=== PATIENT | male | born 1975 ===

== ENCOUNTER 2016-12-07 15:00 | Emergency (ER) | payer OTHER ==
[2016-12-07 15:10] VITALS: BMI 34.1
[2016-12-07] MEDS ORDERED: Insulin Reg-MEDIUM-Coverage IV STA (15:25)
[2016-12-07] MEDS ORDERED: Sodium Chloride 0.9% 1,000 ML IV STA (15:25)
--- NOTE | 2016-12-07 15:43 | ED PDOC ---
Arrival/HPI - General Chief Complaint: Male Genitourinary Time Seen by Provider: 12/07/16 15:11 Historian: Patient - History of Present Illness Narrative History of Present Illness (Text): 12/07/16 15:39 41yo morbidly obese male with no PMHx who present with 4days history of urinary frequency and poly dipsia. Notes that he is constantly thirsty and urinating frequently. The friend who was by the bedside states, his finger stick was greater than 400 at home, earlier today. He denies abdominal pain, dysuria, fever, chills, aback pain, any other complaint. Past Medical History - Provider Review Nursing Documentation Reviewed: Yes - Cardiac Hx Cardiac Disorders: No - Pulmonary Hx Asthma: Yes - Neurological Hx Neurological Disorder: No - HEENT Hx HEENT Disorder: No - Renal Hx Renal Disorder: No - Endocrine/Metabolic Hx Endocrine Disorders: No - Hematological/Oncological Hx Blood Disorders: No - Integumentary Hx Dermatological Disorder: No - Musculoskeletal/Rheumatological Hx Musculoskeletal Disorders: No - Gastrointestinal Hx Gastrointestinal Disorders: No - Genitourinary/Gynecological Hx Genitourinary Disorders: No - Psychiatric Hx Psychophysiologic Disorder: No Hx Substance Use: No - Anesthesia Hx Anesthesia: No Family/Social History - Physician Review Nursing Documentation Reviewed: Yes Family/Social History: Unknown Family HX Smoking Status: Never Smoked Hx Alcohol Use: No Hx Substance Use: No Allergies/Home Meds Allergies/Adverse Reactions: Allergies shellfish derived Allergy (Verified 12/07/16 15:10) ANAPHYLAXIS Review of Systems - Physician Review All systems were reviewed & negative as marked: Yes - Review of Systems Constitutional: Normal Eyes: Normal ENT: Normal Respiratory: Normal Cardiovascular: Normal Gastrointestinal: Normal Genitourinary Male: Normal Musculoskeletal: Normal Skin: Normal Neurological: Normal Endocrine: Polyuria, Polydipsia Hemo/Lymphatic: Normal Psychiatric: Normal Physical Exam Vital Signs Reviewed: Yes Vital Signs Temp Pulse Resp BP Pulse Ox 12/07/16 16:55 98.5 F 107 H 16 131/65 98 12/07/16 15:10 99.2 F 110 H 17 148/92 H 94 L 12/07/16 15:09 99.2 F 110 H 17 148/92 H 94 L Temperature: Afebrile Blood Pressure: Normal Pulse: Tachycardic Respiratory Rate: Normal Appearance: Positive for: Well-Appearing, Non-Toxic, Comfortable Pain Distress: None Mental Status: Positive for: Alert and Oriented X 3 Finger Stick Blood Glucose: 333 - Systems Exam Head: Present: Atraumatic, Normocephalic Pupils: Present: PERRL Extroacular Muscles: Present: EOMI Conjunctiva: Present: Normal Mouth: Present: Moist Mucous Membranes Neck: Present: Normal Range of Motion Respiratory/Chest: Present: Clear to Auscultation, Good Air Exchange. No: Respiratory Distress, Accessory Muscle Use Cardiovascular: Present: Regular Rate and Rhythm, Normal S1, S2. No: Murmurs Abdomen: Present: Normal Bowel Sounds. No: Tenderness, Distention, Peritoneal Signs Back: Present: Normal Inspection Upper Extremity: Present: Normal Inspection. No: Cyanosis, Edema Lower Extremity: Present: Normal Inspection. No: Edema Neurological: Present: GCS=15, CN II-XII Intact, Speech Normal Skin: Present: Warm, Dry, Normal Color. No: Rashes Psychiatric: Present: Alert, Oriented x 3, Normal Insight, Normal Concentration Medical Decision Making ED Course and Treatment: 12/07/16 15:43 41yo male in ED for polyuiria and polydipsia. The girlfriend notes that his FS was greater than 400 at home. In ED it was 333. Labs ordered and pending. 1L of NS and 7units of insulin ordered Will evaluate lab for possible admission for newly diagnosed diabetic 12/07/16 17:12 LAb reviewed. Pt is not in DKA. Repeat FS was 139. Result was DW the pt. He will be DC home with a rx of Metformin. clinical staff educator is probably gone for the day. He was counselled on weight loss. Advised to f/u with his PMD tomorrow or Monday. He notes he will see his PMD tomorrow. TRT ED for any new symptoms. - Lab Interpretations Lab Results: 12/07/16 16:00 12/07/16 16:00 Lab Results 12/07/16 16:00: Sodium 142, Potassium 4.1, Chloride 99, Carbon Dioxide 31, Anion Gap 16, BUN 17, Creatinine 0.9, Est GFR ( Amer) > 60, Est GFR (Non- Af Amer) > 60, Random Glucose 383 H*, Calcium 9.6, Total Bilirubin 1.0, AST 93 H , ALT 121 H, Alkaline Phosphatase 105, Total Protein 8.3, Albumin 4.5, Globulin 3.7, Albumin/Globulin Ratio 1.2 12/07/16 16:00: WBC 9.5, RBC 4.58, Hgb 14.7, Hct 41.4 L, MCV 90.4, MCH 32.1, MCHC 35.5, RDW 13.5, Plt Count 190, MPV 10.9, Gran % 72.4 H, Lymph % (Auto) 21.5 L, [place] % (Auto) 5.2, Eos % (Auto) 0.7 L, Baso % (Auto) 0.2, Gran # 6.90 H , Lymph # 2.1, Starke # 0.5, Eos # 0.1, Baso # 0.02 12/07/16 15:30: Urine Color Yellow, Urine Appearance Sl cloudy, Urine pH 6.0, Ur Specific [place] 1.015, Urine Protein Trace H, Urine Glucose (UA) >=1000, Urine Ketones Negative, Urine Blood Trace-intact H, Urine Nitrate Negative, Urine Bilirubin Negative, Urine Urobilinogen 0.2, Ur Leukocyte Esterase Negative , Urine RBC 0 - 2, Urine WBC Negative - Medication Orders Current Medication Orders: Discontinued Medications Sodium Chloride (Sodium Chloride 0.9%) 1,000 mls @ 999 mls/hr IV .Q1H1M STA Stop: 12/07/16 16:25 Insulin Human Regular (Humulin R Med) 7 units IV ONCE STA PRN Reason: Protocol Stop: 12/07/16 15:26 Insulin Human Regular (Humulin R) 7 units IV ONCE ONE PRN Reason: Protocol Stop: 12/07/16 16:01 Disposition/Present on Arrival - Present on Arrival Any Indicators Present on Arrival: No History of DVT/PE: No History of Uncontrolled Diabetes: No Urinary Catheter: No History of Decub. Ulcer: No History Surgical Site Infection Following: None - Disposition Have Diagnosis and Disposition been Completed?: Yes Diagnosis: Diabetes mellitus, new onset Disposition: HOME/ ROUTINE Disposition Time: 17:15 Patient Plan: Discharge Condition: STABLE Discharge Instructions (ExitCare): Diabetes Mellitus Type 2 in Adults (ED) Additional Instructions: Follow up with your Doctor Return to ED for any new or worsening symptoms Prescriptions: metFORMIN [glucOPHAGE] 850 mg PO BID #30 tab Referrals: Mutterperl,Hong, MD [Family Provider] - Follow up with primary Forms: [employer] (Pashto)
[2016-12-07 15:52] LABS: URINE BILIRUBIN NEGATIVE (NEGATIVE); URINE BLOOD TRACE-INTACT (NEGATIVE); URINE GLUCOSE (UA) >=1000 mg/dL (NEGATIVE); URINE KETONE NEGATIVE (NEGATIVE); URINE LEUKOCYTE ESTERASE NEGATIVE Leu/uL (NEGATIVE); URINE PROTEIN TRACE mg/dL (<30 mg/dL); URINE UROBILINOGEN 0.2 E.U./dL (<1 E.U./dL)
[2016-12-07 15:53] LABS: URINE APPEARANCE SL CLOUDY (CLEAR); URINE COLOR YELLOW (YELLOW)
[2016-12-07 16:00] LABS: URINE RBC 0 - 2 /hpf (0-2); URINE WBC NEGATIVE /hpf (0-6)
[2016-12-07] MEDS ORDERED: Insulin Regular 1 UNITS/0.01 ML ML IV ONE (16:00)
[2016-12-07 16:15] LABS: BASO # 0.02 K/mm3 (0.0-2.0); BASO % 0.2 % (0.0-3.0); EOS # 0.1 (0.0-0.7); EOS % 0.7 % (1.5-5.0); GRAN # 6.9 (1.4-6.5); GRAN % 72.4 % (50.0-68.0); HEMATOCRIT 41.4 % (42.0-52.0); LYMPH # 2.1 (1.2-3.4); LYMPH % 21.5 % (22.0-35.0); MEAN CELL VOLUME 90.4 fl (80.0-105.0); MEAN CORPUSCULAR HEMOGLOBIN 32.1 pg (25.0-35.0); MEAN CORPUSCULAR HGB CONC 35.5 g/dl (31.0-37.0); MEAN PLATELET VOLUME 10.9 fl (7.0-11.0); MONO # 0.5 (0.1-0.6); MONO % 5.2 % (1.0-6.0); RED CELL DISTRIBUTION WIDTH 13.5 % (11.5-14.5); WHITE BLOOD COUNT 9.5 10^3/ul (4.5-11.0)
[2016-12-07 16:20] LABS: ALB/GLOB RATIO 1.2 (1.1-1.8); ALKALINE PHOSPHATASE 105 U/L (38-126); ALT/SGPT 121 U/L (7-56); AST/SGOT 93 U/L (17-59); BLOOD UREA NITROGEN 17 mg/dL (7-21); CALCIUM 9.6 mg/dL (8.4-10.5); CARBON DIOXIDE 31 mmol/L (21-33); CHLORIDE 99 mmol/L (98-107); GFR AFRICAN-AMERICAN > 60; POTASSIUM 4.1 mmol/L (3.6-5.0); SODIUM 142 mmol/L (132-148); TOTAL PROTEIN 8.3 g/dL (5.8-8.3)
[2016-12-07 16:25] LABS: GLUCOSE,RANDOM 383 mg/dL (70-110)
[2016-12-07 16:56] VITALS: BP 131/65; TEMP 98.5; O2SAT 98
[2016-12-07 17:45] VITALS: PULSE 110; RESP 18
== END 2016-12-07 17:39 | disposition home or self-care (01) ==
LOC: ED 15:00
DX: E11.9 Type 2 diabetes mellitus without complications (principal); E66.01 Morbid (severe) obesity due to excess calories